=== PATIENT | female | born 1995 | race African-American/Black ===

== ENCOUNTER 2020-04-19 11:26 | Emergency (ER) | payer SELFPAY ==
--- NOTE | 2020-04-19 12:15 | ER Document Report ---
ED Medical Screen (RME) - General Chief Complaint: Low Blood Pressure Stated Complaint: BLOOD PRESSURE PROBLEM Time Seen by Provider: 04/19/20 12:10 Notes: Patient is a 24-year-old female presents emergency department with a chief complaint of feeling as if she is going to "pass out." She states that her blood pressure drops when she feels this way. Reports that her blood pressure is normally in the systolic 120s and when she has these episodes, her blood pressures in the 90s. Denies any contact with anybody who has tested positive for COVID-19. Exam: Alert and oriented. Normal strength in bilateral upper extremities. I have greeted and performed a rapid initial assessment of this patient. A comprehensive ED assessment and evaluation of the patient, analysis of test results and completion of medical decision making process will be conducted by an additional ED providers. - Related Data Allergies/Adverse Reactions: codeine Allergy (Verified 04/19/20 12:10) morphine Allergy (Verified 04/19/20 12:10) Past Medical History - Social History Frequency of alcohol use: Occasional Drug Abuse: Marijuana Physical Exam - Vital signs Vitals: Temp Pulse Resp BP 98.4 F 83 21 H 123/62 04/19/20 11:31 04/19/20 11:31 04/19/20 11:31 04/19/20 11:31 Course - Vital Signs Vital signs: Temp Pulse Resp BP Pulse Ox 98.4 F 83 21 H 123/62 04/19/20 11:31 04/19/20 11:31 04/19/20 11:31 04/19/20 11:31
[2020-04-19 12:57] LABS: APPEARANCE,URINE SLIGHTLY-CLOUDY; BILIRUBIN,URINE NEGATIVE (NEGATIVE); COLOR,URINE YELLOW; GLUCOSE, URINE NEGATIVE (NEGATIVE); KETONES,URINE TRACE mg/dL (NEGATIVE); LEUKOCYTE ESTERASE,URINE NEGATIVE (NEGATIVE); NITRITE,URINE NEGATIVE (NEGATIVE); PROTEIN,URINE 30 mg/dL (NEGATIVE)
--- NOTE | 2020-04-19 13:25 | ER Document Report ---
ED General - General Chief Complaint: Low Blood Pressure Stated Complaint: BLOOD PRESSURE PROBLEM Time Seen by Provider: 04/19/20 12:10 - HPI Notes: Patient is a 24-year-old female presents emergency department for evaluation of near syncopal episodes. She states that she has been feeling very weak, her blood pressures have been in the 90s over 60s which is not normal for her. This is all been happening frequently over the last week. patient also was started on Zoloft 25 mg, Abilify, Remeron, about a week ago. She has no fevers or chills. No nausea or vomiting. She denies any associated pain or shortness of breath. No diarrhea. She has a history of gastric sleeve, has been eating and drinking normally per her. Her last menstrual period was March 11, she is sexually active. - Related Data Allergies/Adverse Reactions: codeine Allergy (Verified 04/19/20 12:10) morphine Allergy (Verified 04/19/20 12:10) Home Medications: Zoloft, Remeron, Abilify, all started within the last 7 days Past Medical History - General Information source: Patient - Social History Smoking Status: Current Every Day Smoker Frequency of alcohol use: Occasional Drug Abuse: Marijuana Family History: Reviewed & Not Pertinent Past Surgical History: Reports: Hx Appendectomy, Hx Cholecystectomy, Hx Gastric Bypass Surgery - Sleeve Review of Systems - Review of Systems Constitutional: See HPI EENT: No symptoms reported Cardiovascular: See HPI Respiratory: No symptoms reported Gastrointestinal: No symptoms reported Genitourinary: No symptoms reported Musculoskeletal: No symptoms reported Skin: No symptoms reported Neurological/Psychological: No symptoms reported Physical Exam - Vital signs Vitals: Temp Pulse Resp BP 98.4 F 83 21 H 123/62 04/19/20 11:31 04/19/20 11:31 04/19/20 11:31 04/19/20 11:31 - Notes Notes: Vital signs reviewed, please refer to chart. Head is normocephalic, atraumatic. Pupils equal round, reactive to light. Neck is supple without meningismus. Heart is regular rate and rhythm. Lungs are clear to auscultation bilaterally. Abdomen is soft, nontender, normoactive bowel sounds throughout. Extremities without cyanosis, clubbing. Posterior calves are nontender. Peripheral pulses are equal. Skin is warm and dry. Patient is awake alert, oriented x3. No gross facial asymmetry. Moves all 4 extremities spontaneously, no obvious neurological deficits. Course - Re-evaluation Re-evalutation: 04/19/20 13:25 Patient presents to the emergency department for evaluation. She was initially seen through triage. My suspicion is that these medications may be at least in part responsible for her changes. Laboratory investigations were obtained. I am awaiting a test which was added to her urine, as well as lab work. The patient is currently stable, we will continue to monitor. 04/19/20 14:18 Patient is in fact . She was notified. Still awaiting remainder of blood work. 04/19/20 14:26 I went back and I discussed medications with the patient. She has been on the Zoloft for some time, but was just started on the Abilify and Remeron about 10 days ago. She is not psychotic. She has only had depression and anxiety. She has no history of suicidal or homicidal ideation. No visual or auditory hallucination. Given the side effects of these medications in the short amount of time which she has been taking them, I do believe it is appropriate for her to come off of them. She agrees and plans to discontinue them as well. 04/19/20 16:04 Patient's metabolic panel is unremarkable. She is told to stay hydrated, start vitamins, and follow-up closely with [facility]. - Vital Signs Vital signs: Temp Pulse Resp BP Pulse Ox 97.0 F 84 15 101/62 100 04/19/20 16:10 04/19/20 16:10 04/19/20 16:10 04/19/20 16:10 04/19/20 16:10 - Laboratory Results Result Diagrams: 04/19/20 14:00 04/19/20 14:54 Laboratory Results Interpreted: 04/19/20 04/19/20 04/19/20 12:20 12:20 14:00 Hgb 11.7 L Hct 34.5 L Chloride Alkaline Phosphatase Urine Protein 30 H Urine Ketones TRACE H Urine Urobilinogen 2.0 H Urine Ascorbic Acid 40 H Urine HCG, Qual POSITIVE H 04/19/20 14:54 Hgb Hct Chloride 109 H Alkaline Phosphatase 33 L Urine Protein Urine Ketones Urine Urobilinogen Urine Ascorbic Acid Urine HCG, Qual Critical Laboratory Results Reviewed: No Critical Results - Radiology Results Critical Radiology Results Reviewed: No Critical Results Discharge - Discharge Clinical Impression: Near syncope Qualifiers: Weeks of gestation: less than 8 weeks Qualified Code(s): Z3A.01 - Less than 8 weeks gestation of Condition: Stable Disposition: HOME, SELF-CARE Instructions: Near Syncopal Episode ([facility]), ([facility]) Additional Instructions: Please stay well-hydrated. You are likely approximately 6 weeks . Start vitamins as discussed. You should also discontinue the Remeron and Abilify as discussed. Please continue your Zoloft. Follow-up closely with [facility]. If you develop worsening or new concerning symptoms of any sort, please return immediately to the emergency department for evaluation.
[2020-04-19 14:18] LABS: ABSOLUTE EOSINOPHILS # (AUTO) 0.2 10^3/uL (0.0-0.6); ABSOLUTE MONOCYTES (AUTO) 0.4 10^3/uL (0.1-1.4); ABSOLUTE NEUT (AUTO) 3.4 10^3/uL (1.7-8.2); BASOPHILS % (AUTO) 0.6 % (0-2); EOSINOPHILS % (AUTO) 3.5 % (0-6); HEMATOCRIT 34.5 % (36.0-47.0); HEMOGLOBIN 11.7 g/dL (12.0-15.5); LYMPHOCYTES % (AUTO) 33.2 % (13-45); MEAN CORPUSCULAR HEMOGLOBIN 30.3 pg (27.0-33.4); MEAN CORPUSCULAR HGB CONC 33.8 g/dL (32.0-36.0); MEAN CORPUSCULAR VOLUME 90 fl (80-97); MONOCYTES % (AUTO) 6.2 % (3-13); PLATELET COUNT 205 10^3/uL (150-450); RED BLOOD COUNT 3.85 10^6/uL (3.72-5.28); RED CELL DISTRIBUTION WIDTH 13.5 % (11.5-14.0); SEGMENTED NEUTROPHILS % (AUTO) 56.5 % (42-78); TOTAL CELLS COUNTED % (AUTO) 100 %; WHITE BLOOD COUNT 6.1 10^3/uL (4.0-10.5)
[2020-04-19 15:51] LABS: ALBUMIN 3.9 g/dL (3.5-5.0); ALKALINE PHOSPHATASE 33 U/L (38-126); ANION GAP 5 (5-19); ASPARTATE AMINO TRANSFERASE 28 U/L (14-36); BILIRUBIN,DIRECT 0.3 mg/dL (0.0-0.4); BILIRUBIN,TOTAL 0.5 mg/dL (0.2-1.3); BLOOD UREA NITROGEN 15 mg/dL (7-20); CALCIUM 8.7 mg/dL (8.4-10.2); CARBON DIOXIDE 26 mmol/L (22-30); CHLORIDE 109 mmol/L (98-107); GLUCOSE 87 mg/dL (75-110); POTASSIUM 3.7 mmol/L (3.6-5.0)
[2020-04-19 16:12] VITALS: BP 101/62
--- NOTE | 2020-04-19 17:34 | EKG REPORT ---
SEVERITY:- NORMAL ECG - SINUS RHYTHM : Confirmed by: Shahid Young MD 19-Apr-2020 17:33:46
== END 2020-04-19 16:10 | disposition home or self-care (01) ==
LOC: ER 11:26
DX: O26.891 Other specified pregnancy related conditions, first trimester (principal); R55 Syncope and collapse; O99.331 Smoking (tobacco) complicating pregnancy, first trimester; F17.200 Nicotine dependence, unspecified, uncomplicated; O99.321 Drug use complicating pregnancy, first trimester; F12.10 Cannabis abuse, uncomplicated; O99.341 Other mental disorders complicating pregnancy, first trimester; F32.9 Major depressive disorder, single episode, unspecified; F41.9 Anxiety disorder, unspecified; Z79.899 Other long term (current) drug therapy; Z3A.01 Less than 8 weeks gestation of pregnancy
CPT/HCPCS: 36415; 80053; 81001; 81025; 85025; 93005; 93010; 99284